=== PATIENT | female | born 1960 | race Caucasian/White ===

== ENCOUNTER 2016-04-18 20:56 | Emergency (ER) | payer MEDICARE, OTHER ==
[2016-04-18 21:55] VITALS: BP 138/72
--- OUTSIDE RECORDS SUMMARY | 2016-04-18 22:18 | XMS REPORT | Continuity of Care Document ---
:1960 Author Organization [facility] ([facility]) Address [address] [place] [address] Phone [phone] Care Team Providers Name Role Phone Chel Collins Primary Care Provider [phone] Source Comments This disclosure is being made pursuant to the Care Everywhere program, applicable federal and state laws, and may not contain all informaitonavailable regarding this patient.[facility] ([facility]) Active Allergies and Adverse Reactions Allergen Noted Date Severity Reactions Comments Azithromycin 10/14/2010 Diarrhea Erythromycin 10/14/2010 Diarrhea Neuromuscular Blockers, 10/01/2014 OTHER Elevated blood sugars, Steroidal sweats Risperidone 03/16/2015 OTHER Extreme joint pain. Current Medications Prescription Sig. Disp. Refills Start Date End Date Status Liraglutide (VICTOZA) Inject 1.8 mg Active 0.6 mg/0.1 mL (18 mg/3 subcutaneously every mL) PnIj morning before breakfast. albuterol (PROAIR HFA) Use 2 Puffs by Active 90 mcg/Actuation inhalation every 6 inhaler hours as needed. simvastatin 40 mg Take 40 mg by mouth Active tablet every evening. CALCIUM Take 1 tablet by mouth Active CARBONATE/VITAMIN D3 2 times daily . (CALCIUM 600 + D PO) lamoTRIgine (LAMICTAL) Take 200 mg by mouth Active 200 mg tablet every morning before breakfast. albuterol (PROVENTIL, Use 2 Puffs by Active VENTOLIN) 90 inhalation every 6 mcg/Actuation inhaler hours as needed. LEVEMIR FLEXTOUCH 100 Inject 60 Units 0 09/03/2014 Active unit/mL (3 mL) subcutaneously daily injection pen PANTOPRAZOLE 40 mg EC Take 40 mg by mouth 9 08/30/2014 Active tablet daily ZOLPIDEM 10 mg tablet Take 10 mg by mouth at 2 09/03/2014 Active bedtime mirtazapine 45 mg Take 45 mg by mouth at Active tablet bedtime SUPPLY CONTOUR NEXT 11 01/11/2015 Active test strip gabapentin 400 mg 1,200 mg 3 times 2 04/06/2015 Active capsule daily. hydrOXYzine pamoate 50 100 mg at bedtime. 2 04/02/2015 Active mg capsule NOVOLOG FLEXPEN 100 15 Units 3 times 3 04/06/2015 Active unit/mL (3 mL) daily. injection pen vortioxetine Take 20 mg by mouth Active (TRINTELLIX) 20 mg every morning before tablet breakfast. acetaminophen 500 mg Take 1,000 mg by mouth Active tablet 3 times daily as needed. SUPPLY BD ULTRA-FINE as needed. 3 10/08/2015 Active PARAMJIT 32 x 4 MM pen needle desvenlafaxine Take 100 mg by mouth Active succinate (PRISTIQ) daily. 100 mg XR tablet insulin glargine Inject subcutaneously Active (BASAGLAR KWIKPEN) 100 at bedtime. unit/mL (3 mL) injection pen Active Problems Problem Noted Date Cervical spine pain 04/03/2016 Chronic neck and back pain 09/29/2015 Cervical spondylosis without myelopathy 10/01/2014 Cervical radiculopathy at C5 10/01/2014 Most Recent Encounters Date Type Specialty Providers Description 04/03/2016 Hospital Encounter Radiology Eddie Sanders MD Dx: Cervical spine pain 04/03/2016 Office Visit Orthopaedic Zakiya Simmons MD Dx: Cervical spine pain (Primary Dx) 04/03/2016 Ancillary Orders Zakiya Toth MD 03/27/2016 Office Visit Zakiya Toth MD Dx: Neck pain ( Primary Dx) 03/02/2016 Office Visit Zakiya Toth MD Subj: Upcoming Appt Reminder 02/14/2016 Office Visit Zakiya Toth MD Subj: Appointment Scheduled Social History Tobacco Use Types Packs/Day Years Used Date Current Some Day Smoker Cigarettes 0.25 20 Smokeless Tobacco: Never Used Tobacco Cessation:Ready to Quit: Yes; Counseling Given: Yes Comments:cutting down approx 3 packs per month Alcohol Use Drinks/Week oz/Week Comments No Last Filed Vital Signs Vital Sign Reading Time Taken Blood Pressure 144/74 09/29/2015 12:50 PM CDT Pulse 88 09/29/2015 12:50 PM CDT Temperature 36.5 C (97.7 F) 04/06/2015 8:11 AM [employer] Respiratory Rate 16 04/06/2015 8:11 AM [employer]IL [employer]NAL [employer] Height 1.68 m (5' 6.14") 09/29/2015 12:50 PM CDT Weight 86 kg (189 lb 9.5 oz) 09/29/2015 12:50 PM CDT Body Mass Index 30.47 09/29/2015 12:50 PM CDT Oxygen Saturation - - Plan of Care Date Type Specialty Providers Description 04/24/2016 Appointment Radiology Subj: Appointment Scheduled 04/24/2016 Appointment Orthopaedic Zakiya Simmons MD Subj: Appointment Rescheduled Health Maintenance Due Date Last Done Comments HCV Screening 1960 Hepatitis B Vaccine (1 of 3 - Primary Series) 1960 Tdap Vaccine 1969 Lipid Disorder Screening 1976 MMR Vaccine 1976 Td Vaccine 1976 Pneumococcal Vaccine (1 of 1 - PPSV23) 1977 Cervical Cancer Screening 1988 Mammogram 1998 Colonoscopy 11/24/2008 Influenza Vaccine: Seasonal (#1) 09/27/2015 Results from Last 3 Months C SPINE AP, LATERAL,& FLEXION/EXTENSION (04/03/2016 8:27 AM) Impressions Findings / Impression: Cervical spine is visualized to the C7 level. There is approximately 2 mm anterolisthesis of C5 on C6 which is unchanged with flexion/extension. No evidence of segmental instability. Vertebral bodies are preserved. There is moderate disc space height loss at C4-5, mild height loss at C5-6, and moderate height loss at C6-7 similar to prior exams. Narrative Procedure: C SPINE AP, LATERAL, & FLEXION/EXTENSION Clinical Indication: Cervical spine pain Comparison: Cervical spine radiographs 03/04/2015 Procedure Note Nestor, Incoming Imaging Results - SunApr 03, 2016 5:13 PM [employer] Procedure: C SPINE AP, LATERAL, & FLEXION/EXTENSION Clinical Indication: Cervical spine pain Comparison: Cervical spine radiographs 03/04/2015 IMPRESSION Findings / Impression: Cervical spine is visualized to the C7 level. There is approximately 2 mm anterolisthesis of C5 on C6 which is unchanged with flexion/extension. No evidence of segmental instability. Vertebral bodies are preserved. There is moderate disc space height loss at C4-5, mild height loss at C5-6, and moderate height loss at C6-7 similar to prior exams.
[2016-04-18] MEDS ORDERED: ONDANSETRON 4 MG TAB.RAPDIS PO ONE (22:19)
--- NOTE | 2016-04-18 22:21 | ERNOTE ---
Abdominal HPI - General Chief Complaint: Abdominal Pain Time Seen by Provider: 04/18/16 22:08 Source: patient Exam Limitations: no limitations - Immun/Allergies/Home Medications Immunizatons: IMMUNIZATION HX Immunizations Up to Date Yes History of Influenza Vaccine Yes Hx Pneumococcal Vaccination Yes Allergies/Adverse Reactions: Allergies quetiapine fumarate [From Seroquel] Allergy (Verified 05/11/14 15:56) azithromycin [From Zithromax] Adverse Reaction (Mild, Verified 05/11/14 15:56) Diarrhea erythromycin base [Erythromycin Base] Adverse Reaction (Mild, Verified 05/11/14 15:56) Diarrhea Home Medications: HOME MEDICATIONS Gabapentin 1,200 mg PO TID 05/11/14 [Last Taken Unknown] Hydroxyzine Pamoate 100 mg PO DAILY 05/11/14 [Last Taken Unknown] Lamotrigine [Lamictal] 200 mg PO DAILY 05/11/14 [Last Taken Unknown] Mirtazapine [Mirtazapine (Remeron)] 40 mg PO DAILY 05/11/14 [Last Taken Unknown] Pantoprazole Sodium [Protonix] 40 mg PO BID 05/11/14 [Last Taken Unknown] Simvastatin [Zocor] 40 mg PO HS 05/11/14 [Last Taken Unknown] Zolpidem Tartrate 10 mg PO DAILY 05/11/14 [Last Taken Unknown] Benzonatate [Tessalon Perle] 100 mg PO TID #20 capsule 04/18/16 [Last Taken Unknown] Desvenlafaxine Succinate [Pristiq] 100 mg PO DAILY 04/18/16 [Last Taken Unknown] Insulin Lispro [Humalog] 18 unit SQ AC 04/18/16 [Last Taken Unknown] - History of Present Illness Narrative: Pt has had diarrhea for 4-6 weeks, tonight she was having abdominal pain and her son convinced her to be seen Timing: getting worse Quality: moderate, aching Activities at Onset: none Associated Symptoms: Present: nausea, loss of appetite. Absent: heartburn Review of Systems - Review of Systems Constitutional: Absent: fever, chills EYE: Present: no symptoms reported ENT: Present: no symptoms reported Respiratory: Present: cough. Absent: shortness of breath Cardiology: Absent: chest pain Gastrointestinal/Abdominal: Present: See HPI. Absent: nausea, vomiting Genitourinary: Present: no symptoms reported Musculoskeletal: Present: no symptoms reported Skin: Present: no symptoms reported Neurological: Present: no symptoms reported Endocrine: Present: no symptoms reported Hematologic/Lymphatic: Present: no symptoms reported - Patient's Past Medical History Patient History - Medical: Anxiety, Diabetes Type 2 Insulin Dependent, Depression, GERD Patient History - Cardiac/Respiratory: Asthma, Bronchitis, Pneumonia Patient History - Cancer: Ovarian Patient History - Surgical Procedures: Cholecystectomy, Hysterectomy, Total Knee Replacement, Other - Social History Smoking Status: Former smoker Have you smoked in the past 12 months: Yes Do you dip or chew tobacco: No - Immunizations Immunizations Up to Date: Yes Hx Pneumococcal Vaccination: Yes History of Influenza Vaccine: Yes Physical Exam - Physical Exam General Appearance: Present: wd/wn, alert, no apparent distress Ears, Nose, Throat: Present: normal ENT inspection Neck: Present: normal inspection, nontender Respiratory: Present: no respiratory distress, no accessory muscle use, lungs clear Cardiovascular/Chest: Present: regular rate, rhythm, no murmur, normal peripheral pulses Gastrointestinal/Abdominal: Present: normal bowel sounds, tenderness - diffusly. Absent: guarding, rebound Back Exam: Present: normal inspection, normal range of motion Extremity Exam: Present: non-tender, no edema Neurological Exam: Present: alert, oriented, normal mood/affect, no motor/ sensory deficits Skin Exam: Present: normal color, warm/dry Lymphatic Exam: Present: no adenopathy ED Progress - Results and Orders Patient's Lab Results:: I have reviewed the patient's lab results. Results and Orders: Laboratory Tests 04/18/16 04/18/16 04/18/16 22:24 22:30 22:30 WBC 7.5 Hgb 13.2 Hct 40.4 Plt Count 273 Sodium 144 H Potassium 4.6 Chloride 106 Carbon Dioxide 30.5 Anion Gap 12.1 BUN 16 Creatinine 0.87 Random Glucose 120 H Calcium 9.1 Total Bilirubin 0.2 AST 13 ALT 30 Alkaline Phosphatase 97 Total Protein 7.4 Albumin 3.8 Amylase 50 Lipase 318 Urine Color Yellow Urine Appearance Clear Urine pH 6.0 Ur Specific [place] 1.025 Urine Protein Negative Urine Glucose (UA) Negative Urine Ketones Negative Urine Blood Negative Urine Nitrate Negative Urine Bilirubin Negative Urine Urobilinogen Normal Ur Leukocyte Esterase Negative Urine RBC None seen Urine WBC None seen Ur Epithelial Cells 0-5 Urine Bacteria 1+ H Urine Culture Comments No culture indicated - Vital Signs Patient's Vital Signs:: I have reviewed the patient's vital signs. Vital Signs: Vital Signs 04/18/16 04/18/16 21:00 21:54 Temperature 36.2 C L 36.2 C L Pulse Rate 87 84 Respiratory 18 18 Rate Blood Pressure 152/87 138/72 O2 Sat by Pulse 97 97 Oximetry - X-Ray X-Ray #1 X-Ray: abdomen Interpretation: Interp. by me X-ray Comments: Scattered stool, no evidence for obstruction - Progress/Reassessment Chief Complaint: Abdominal Pain Departure - Departure Clinical Impression: Diarrhea Qualifiers: Diarrhea type: unspecified type Qualified Code(s): R19.7 - Diarrhea, unspecified Abdominal pain Qualifiers: Abdominal location: generalized Qualified Code(s): R10.84 - Generalized abdominal pain Disposition: Home Follow Up Needed Condition: Good Instructions: Abdominal Pain, Adult, [id number] Referrals: Chel Collins ARNP [Primary Care Provider] - Prescriptions: Benzonatate [Tessalon Perle] 100 mg PO TID #20 capsule
[2016-04-18] MEDS ORDERED: ONDANSETRON 4 MG TAB.RAPDIS ONE (22:30)
[2016-04-18 22:38] LABS: Hematocrit 40.4 % (37.0-47.0); Hemoglobin 13.2 gm/dL (12.5-16.0); Mean Cell Volume 83.3 fl (78-100); Mean Corpuscular Hemoglobin 27.2 pg (27-31); Mean Corpuscular Hgb Conc 32.7 g/dl (32-36); Mean Platelet Volume 9.1 fl (6.0-9.5); Neutrophil % 54.3 % (42-75.0); Platelet Count 273 K/mm3 (150-450); Red Blood Count 4.85 M/mm3 (4.2-5.4); Red Cell Distribution Width 13.1 % (11.5-14.0); White Blood Count 7.5 K/mm3 (4.0-10.5)
[2016-04-18 22:51] LABS: Albumin * 3.8 gm/dl (3.4-5.0); Anion Gap 12.1 mmol/L (6.8-13.8); BUN/Creatinine Ratio 18.4 (9.0-21.6); Bilirubin, Total 0.2 mg/dL (0.0-1.1); Ca. Corrected For Albumin 8.9 mg/dL (8.4-10.2); Calcium * 9.1 mg/dL (7.9-10.9); Carbon Dioxide 30.5 mmol/L (24-32.6); Potassium 4.6 mmol/L (3.4-4.6); Total Protein 7.4 gm/dL (6.2-8.2)
[2016-04-18 23:02] LABS: Urine Appearance Clear; Urine Bilirubin Negative (NEGATIVE); Urine Blood Negative /ul (NEGATIVE); Urine Color Yellow; Urine Ketone Negative (NEGATIVE); Urine Nitrite Negative (NEGATIVE); Urine Protein Negative (NEGATIVE); Urine Specific Gravity 1.025 SP.GR. (1.005-1.010); Urine Urobilinogen Normal (NORMAL)
[2016-04-18 23:03] LABS: Urine Bacteria 1+; Urine RBC None Seen /hpf (0-5); Urine WBC None Seen /hpf (0-5)
[2016-04-18] MEDS ORDERED: BENZONATATE 100 MG CAPSULE PO ONE ×2 (23:34→23:52)
== END 2016-04-18 23:57 | disposition home or self-care (01) ==
LOC: ER 20:56
DX: R19.7 Diarrhea, unspecified (principal); R10.84 Generalized abdominal pain; Z87.891 Personal history of nicotine dependence